=== PATIENT | male | born 1960 | race Caucasian/White ===

== ENCOUNTER 2018-11-14 16:32 | Inpatient (IN) ==
[2018-11-14] MEDS ORDERED: ASPIRIN 325 MG TABLET PO STA (17:05)
[2018-11-14] MEDS ORDERED: NITROGLYCERIN SL 0.4 MG TABLET SL PRN (17:05)
[2018-11-14] MEDS ORDERED: ENOXAPARIN 100 MG/ML SYRINGE SUBCUT STA (17:05)
[2018-11-14] MEDS ORDERED: ENOXAPARIN 120 MG/0.8 ML SYRINGE SUBCUT ONE (17:08)
[2018-11-14 17:34] LABS: Basophils # 0.1 10*3/uL (0.0-0.2); Basophils % 1.1 % (0.0-0.8); Eosinophils # 0.3 10*3/uL (0.0-0.87); Eosinophils % 4.1 % (0.00-10.9); Hematocrit 23.9 VOL% (42.0-52.0); Hemoglobin 6.5 GM/DL (14.0-18.0); Immature Granulocytes % 0.4 %; Immature Granulocytes Absolute 0.03 #; Lymphocytes % 27.7 % (21.2-54.2); Mean Corpuscular HGB Conc 27.2 GM/DL (32-36); Mean Corpuscular Hemoglobin 19 PG (27-34); Mean Corpuscular Volume 67.9 FL (87-102); Mean Platelet Volume 10.6 FL (9.6-12.0); Monocytes # 0.5 10*3/uL (0.11-0.8); Monocytes % 7.6 % (1.7-12.7); Neutrophils # 4.2 10*3/uL (1.4-7.4); Neutrophils % 59.1 % (38.7-73.9); Platelet Count 328 T/CUMM (130-400); Red Blood Count 3.52 MC/CUMM (3.8-5.5); White Blood Count 7.1 T/CUMM (4-12)
[2018-11-14 17:52] LABS: Albumin 3.7 G/DL (3.4-5.0); Bilirubin,Total 0.7 MG/DL (0.2-1.0); Calcium 8.3 MG/DL (8.5-10.1); Osmolality,Calculated 278.5 MOS/KG (273-304); Potassium 3.5 MMOL/L (3.5-5.1); Total Protein 7.7 G/DL (6.4-8.3)
[2018-11-14 18:18] LABS: Hypochromasia 2+
[2018-11-14 18:19] LABS: Elliptocytes 1+; Microcytosis 2+; Sickle Cells Few
[2018-11-14 18:20] LABS: Platelet Estimate Adequate; Poikilocytosis 2+; Target Cells Slight; Tear Drop Cells Few
[2018-11-14] MEDS ORDERED: SODIUM CHLORIDE 0.9% 1,000 ML IV PRN (18:32)
[2018-11-14] MEDS ORDERED: ACETAMINOPHEN 325 MG TABLET PO PRN (20:06)
[2018-11-14] MEDS ORDERED: DOCUSATE SODIUM 100 MG CAPSULE PO PRN (20:06)
[2018-11-14] MEDS ORDERED: guaiFENesin/DM ER 600-30 MG TABLET PO PRN (20:06)
[2018-11-14] MEDS ORDERED: ONDANSETRON 4 MG/2 ML VIAL IV PRN (20:06)
[2018-11-14] MEDS ORDERED: MORPHINE 4 MG/1 ML VIAL IV PRN (20:34)
[2018-11-14 20:59] LABS: Apearance,Urine Slightly Hazy (Clear); Bilirubin,Urine Negative (Negative); Blood, Urine Negative (Negative); Glucose,Urine (UA) Negative (Negative); Ketones,Urine 5 mg/dL (Negative); Nitrite,Urine Negative (Negative); Protein,Urine 30 MG/DL; Urine Color Yellow (Yellow); Urine Specific Gravity 1.029 (1.001-1.035); WBC,Urine <1 /HPF (0-6)
[2018-11-14] MEDS: ZALEPLON 5 MG CAPSULE PO PRN (23:00)
[2018-11-14] MEDS: ALBUTEROL/IPRATROPIUM 3 ML NEB RESP TX PRN (23:15)
[2018-11-15] MEDS: ALBUTEROL/IPRATROPIUM 3 ML NEB RESP TX PRN ×3 (05:33→21:12)
[2018-11-15 07:42] LABS: Basophils # 0.1 10*3/uL (0.0-0.2); Basophils % 1.3 % (0.0-0.8); Eosinophils # 0.3 10*3/uL (0.0-0.87); Eosinophils % 4.5 % (0.00-10.9); Hematocrit 28.3 VOL% (42.0-52.0); Immature Granulocytes % 0.3 %; Immature Granulocytes Absolute 0.02 #; Lymphocytes # 2.4 10*3/uL (1.4-4.0); Lymphocytes % 33.2 % (21.2-54.2); Mean Corpuscular HGB Conc 27.9 GM/DL (32-36); Mean Corpuscular Hemoglobin 20 PG (27-34); Mean Corpuscular Volume 70.4 FL (87-102); Mean Platelet Volume 11.1 FL (9.6-12.0); Monocytes # 0.6 10*3/uL (0.11-0.8); Neutrophils # 3.7 10*3/uL (1.4-7.4); Neutrophils % 51.7 % (38.7-73.9); Red Blood Count 4.02 MC/CUMM (3.8-5.5); Red Cell Distribution Width 19.1 % (9.3-17.3); White Blood Count 7.1 T/CUMM (4-12)
[2018-11-15 07:49] LABS: Hemoglobin 7.9 GM/DL (14.0-18.0); Platelet Count 251 T/CUMM (130-400)
[2018-11-15 08:00] LABS: Anisocytosis 1+; Elliptocytes 1+; Hypochromasia 1+; Macrocytosis 1+; Microcytosis 2+; Polychromasia 1+
[2018-11-15 08:01] LABS: Spherocytes Few
[2018-11-15 08:02] LABS: Platelet Estimate Normal; Poikilocytosis 2+; Schistocytes 1+; Target Cells 1+
[2018-11-15 08:04] LABS: % Iron Saturation 4.8 % (18-50); Ferritin 3.2 ng/ml (26-388)
[2018-11-15 08:09] LABS: Calcium 8.3 MG/DL (8.5-10.1); Osmolality,Calculated 278.3 MOS/KG (273-304); Potassium 3.9 MMOL/L (3.5-5.1); Risk Ratio 4.1; Thyroid Stimulating Hormone 2.12 uIU/ml (0.358-3.74); VLDL CHOLESTEROL 11.4 MG/DL
[2018-11-15 08:43] LABS: Folate 21.8 NG/ML (5.4-24.0); Vitamin B12 300 PG/ML (211-911)
[2018-11-15 08:55] LABS: Sedimentation Rate-Westergren 49 MM/HR (0-20)
[2018-11-15 10:14] LABS: Hemoglobin A1 (Alkaline) 97.7 % (96.5-98.5); Hemoglobin A2 (Alkaline) 2.3 % (1.5-3.5)
[2018-11-15] MEDS ORDERED: hydrALAZINE 20 MG/1 ML VIAL IV PRN (11:30)
[2018-11-15] MEDS: PANTOPRAZOLE 40 MG TABLET PO SCH (11:55)
[2018-11-15] MEDS: LOSARTAN 25 MG TABLET PO SCH (11:55)
[2018-11-15] MEDS: CHLORTHALIDONE 25 MG TABLET PO SCH (11:55)
[2018-11-15] MEDS ORDERED: ENOXAPARIN 40 MG/0.4 ML SYRINGE SUBCUT SCH (17:00)
[2018-11-15] MEDS: CARVEDILOL 3.125 MG TABLET PO SCH (17:17)
[2018-11-15] MEDS: DICLOFENAC 1% GEL 100 GM TUBE TOP SCH (21:32)
[2018-11-15] MEDS: ZALEPLON 5 MG CAPSULE PO PRN (21:34)
[2018-11-16 04:38] LABS: Basophils # 0.1 10*3/uL (0.0-0.2); Basophils % 1.1 % (0.0-0.8); Eosinophils # 0.4 10*3/uL (0.0-0.87); Eosinophils % 4.3 % (0.00-10.9); Hematocrit 29.2 VOL% (42.0-52.0); Hemoglobin 8.4 GM/DL (14.0-18.0); Immature Granulocytes % 0.4 %; Immature Granulocytes Absolute 0.03 #; Lymphocytes # 2.2 10*3/uL (1.4-4.0); Lymphocytes % 26.5 % (21.2-54.2); Mean Corpuscular HGB Conc 28.8 GM/DL (32-36); Mean Corpuscular Hemoglobin 20 PG (27-34); Mean Platelet Volume 10.2 FL (9.6-12.0); Monocytes # 0.8 10*3/uL (0.11-0.8); Monocytes % 9.6 % (1.7-12.7); Neutrophils # 4.8 10*3/uL (1.4-7.4); Neutrophils % 58.1 % (38.7-73.9); Platelet Count 294 T/CUMM (130-400); Red Blood Count 4.17 MC/CUMM (3.8-5.5); Red Cell Distribution Width 18.9 % (9.3-17.3); White Blood Count 8.3 T/CUMM (4-12)
[2018-11-16 04:45] LABS: Calcium 8.6 MG/DL (8.5-10.1); Osmolality,Calculated 271.8 MOS/KG (273-304); Potassium 3.6 MMOL/L (3.5-5.1)
[2018-11-16 05:04] LABS: Hypochromasia 1+; Microcytosis 1+; Platelet Estimate Adequate
[2018-11-16 05:05] LABS: Ovalocytes Slight; Target Cells Slight
[2018-11-16] MEDS ORDERED: PROPOFOL 200 MG/20 ML VIAL IV ONE (10:00)
[2018-11-16] MEDS ORDERED: LIDOCAINE 2% 5 ML VIAL ONE (10:00)
[2018-11-16] MEDS: CARVEDILOL 3.125 MG TABLET PO SCH ×2 (11:45→16:30)
[2018-11-16] MEDS: LOSARTAN 25 MG TABLET PO SCH (11:45)
[2018-11-16] MEDS: DICLOFENAC 1% GEL 100 GM TUBE TOP SCH ×3 (11:46→22:15)
[2018-11-16] MEDS: PANTOPRAZOLE 40 MG TABLET PO SCH (11:46)
[2018-11-16] MEDS: CHLORTHALIDONE 25 MG TABLET PO SCH (11:46)
[2018-11-16] MEDS ORDERED: BISACODYL 5 MG TABLET PO ONE (12:00)
[2018-11-16] MEDS ORDERED: POLYETHYLENE GLYCOL POWDER 255 GM BOTTLE PO ONE (18:00)
[2018-11-17 05:36] LABS: Calcium 8.4 MG/DL (8.5-10.1); Osmolality,Calculated 273.7 MOS/KG (273-304); Potassium 3.4 MMOL/L (3.5-5.1)
[2018-11-17 06:09] LABS: Basophils # 0.1 10*3/uL (0.0-0.2); Eosinophils # 0.3 10*3/uL (0.0-0.87); Eosinophils % 2.8 % (0.00-10.9); Hematocrit 29.4 VOL% (42.0-52.0); Immature Granulocytes % 0.3 %; Immature Granulocytes Absolute 0.03 #; Lymphocytes # 2.2 10*3/uL (1.4-4.0); Lymphocytes % 23.7 % (21.2-54.2); Mean Corpuscular HGB Conc 28.6 GM/DL (32-36); Mean Corpuscular Hemoglobin 20 PG (27-34); Mean Corpuscular Volume 69.8 FL (87-102); Mean Platelet Volume 10.4 FL (9.6-12.0); Monocytes # 0.9 10*3/uL (0.11-0.8); Monocytes % 9.9 % (1.7-12.7); Neutrophils # 5.7 10*3/uL (1.4-7.4); Neutrophils % 62.3 % (38.7-73.9); Platelet Count 320 T/CUMM (130-400); Red Blood Count 4.21 MC/CUMM (3.8-5.5); Red Cell Distribution Width 19.5 % (9.3-17.3); White Blood Count 9.1 T/CUMM (4-12)
[2018-11-17 06:11] LABS: Hemoglobin 8.4 GM/DL (14.0-18.0)
[2018-11-17 06:16] LABS: Hypochromasia 2+; Platelet Estimate Normal
[2018-11-17] MEDS ORDERED: LIDOCAINE 100 MG/5 ML SYRINGE ONE (10:00)
[2018-11-17] MEDS ORDERED: PROPOFOL 200 MG/20 ML VIAL IV ONE (10:00)
[2018-11-17] MEDS: PANTOPRAZOLE 40 MG TABLET PO SCH (15:07)
[2018-11-17] MEDS: LOSARTAN 25 MG TABLET PO SCH (15:07)
[2018-11-17] MEDS: CARVEDILOL 3.125 MG TABLET PO SCH ×2 (15:07→16:20)
[2018-11-17] MEDS: DICLOFENAC 1% GEL 100 GM TUBE TOP SCH ×2 (15:08→21:26)
[2018-11-17] MEDS: CHLORTHALIDONE 25 MG TABLET PO SCH (15:08)
[2018-11-17] MEDS: LISINOPRIL 10 MG TABLET PO SCH (21:25)
[2018-11-17] MEDS: METOPROLOL TARTRATE 50 MG TABLET PO SCH (21:25)
[2018-11-18 04:54] LABS: Hematocrit 29.1 VOL% (42.0-52.0); Hemoglobin 8.4 GM/DL (14.0-18.0)
[2018-11-18 07:48] VITALS: BP 112/54
[2018-11-18] MEDS: PANTOPRAZOLE 40 MG TABLET PO SCH (08:44)
[2018-11-18] MEDS: CHLORTHALIDONE 25 MG TABLET PO SCH (08:44)
[2018-11-18] MEDS: METOPROLOL TARTRATE 50 MG TABLET PO SCH (08:44)
[2018-11-18] MEDS: LISINOPRIL 10 MG TABLET PO SCH (08:44)
[2018-11-18] MEDS: DICLOFENAC 1% GEL 100 GM TUBE TOP SCH (08:44)
== END 2018-11-18 09:45 | disposition home or self-care (01) | DRG 378 ==
LOC: N.EDINP 16:32 → N.ED 16:32 → N.TELEN 21:04 → SUATTDRO 11-15 14:54
PROVIDERS: ADMIT Internal Medicine; ATTEND Internal Medicine

== ENCOUNTER 2019-03-19 14:37 | Inpatient (IN) ==
[2019-03-19 15:38] LABS: PT Patient Result 10.9 SECS
[2019-03-19 15:50] LABS: Basophils # 0.1 10*3/uL (0.0-0.2); Basophils % 0.6 % (0.0-0.8); Eosinophils # 0.3 10*3/uL (0.0-0.87); Eosinophils % 3.3 % (0.00-10.9); Hematocrit 23.4 VOL% (42.0-52.0); Immature Granulocytes % 0.3 %; Immature Granulocytes Absolute 0.02 #; Lymphocytes # 2.1 10*3/uL (1.4-4.0); Lymphocytes % 26.7 % (21.2-54.2); Mean Corpuscular HGB Conc 26.5 GM/DL (32-36); Mean Corpuscular Volume 69.6 FL (87-102); Mean Platelet Volume 10.3 FL (9.6-12.0); Neutrophils % 66.1 % (38.7-73.9); Platelet Count 338 T/CUMM (130-400); Red Blood Count 3.36 MC/CUMM (3.8-5.5); Red Cell Distribution Width 17.2 % (9.3-17.3); White Blood Count 7.9 T/CUMM (4-12)
[2019-03-19 15:52] LABS: Hemoglobin 6.2 GM/DL (14.0-18.0)
[2019-03-19 15:54] LABS: Eosinophils 3 % (0-10); Hypochromasia 2+; Lymphocytes 26 % (20-55); Segmented Neutrophils 66 % (50-85); Total Cells Counted 100
[2019-03-19 15:55] LABS: Anisocytosis 1+; Microcytosis 1+; Ovalocytes Slight; Platelet Estimate Normal; Poikilocytosis 1+; Polychromasia Few
[2019-03-19 15:56] LABS: Stomatocytes 1+
[2019-03-19 15:58] LABS: Alanine Aminotransferase 17 U/L (16-61); Albumin 3.6 G/DL (3.4-5.0); Alkaline Phosphatase 35 U/L (45-117); Aspartate Amino Transferase 14 U/L (0-37); Bilirubin,Total < 0.39 MG/DL (0.2-1.0); Blood Urea Nitrogen 13 MG/DL (7-18); Calcium 8.3 MG/DL (8.5-10.1); Glucose 126 MG/DL (74-106); Osmolality,Calculated 282.3 MOS/KG (273-304); Total Protein 7.2 G/DL (6.4-8.3); Troponin I < 0.015 NG/ML (0.00-0.045)
[2019-03-19 16:35] LABS: Apearance,Urine CLEAR (Clear); Bilirubin,Urine Negative (Negative); Blood, Urine Negative (Negative); Glucose,Urine (UA) Negative (Negative); Hyaline Casts,Urine 1 /LPF (0-3); Ketones,Urine Negative (Negative); Mucus,Urine Occasional /LPF (Occasional); Nitrite,Urine Negative (Negative); Protein,Urine Negative; Squamous Epithelial Cell,Urine Occasional /HPF (0-10); Urine Color Straw (Yellow); Urine Specific Gravity 1.009 (1.001-1.035); Urine Urobilinogen < 2.0 EU/DL (0.2-1.0); WBC,Urine 1 /HPF (0-6)
[2019-03-19] MEDS ORDERED: ONDANSETRON 4 MG/2 ML VIAL IV PRN (17:05)
[2019-03-19] MEDS ORDERED: SODIUM CHLORIDE 0.9% 1,000 ML IV PRN (17:05)
[2019-03-19] MEDS: ACETAMINOPHEN 325 MG TABLET PO PRN ×2 (17:33→22:36)
[2019-03-19 17:52] LABS: % Iron Saturation 3.2 % (18-50); Ferritin 2.7 ng/ml (26-388)
[2019-03-19 17:56] LABS: Folate 16.8 NG/ML (5.4-24.0)
[2019-03-19] MEDS ORDERED: PNEUMOCOCCAL VACCINE (13 VALENT) 0.5 ML SYRINGE IM ONE (20:09)
[2019-03-19 20:49] LABS: Hemoglobin 6.2 GM/DL (14.0-18.0)
[2019-03-19] MEDS: CARVEDILOL 12.5 MG TABLET PO SCH (21:35)
[2019-03-19] MEDS: FUROSEMIDE 40 MG/4 ML VIAL IV SCH (21:37)
[2019-03-19] MEDS ORDERED: NICOTINE 21 MG/24 HR PATCH TRANSDERM PRN (21:51)
[2019-03-20 06:46] LABS: Basophils # 0.1 10*3/uL (0.0-0.2); Basophils % 0.6 % (0.0-0.8); Eosinophils # 0.3 10*3/uL (0.0-0.87); Eosinophils % 3.6 % (0.00-10.9); Hematocrit 27.2 VOL% (42.0-52.0); Immature Granulocytes % 0.4 %; Immature Granulocytes Absolute 0.03 #; Lymphocytes # 2.1 10*3/uL (1.4-4.0); Lymphocytes % 26.3 % (21.2-54.2); Mean Corpuscular HGB Conc 27.6 GM/DL (32-36); Mean Corpuscular Volume 73.1 FL (87-102); Mean Platelet Volume 9.9 FL (9.6-12.0); Monocytes % 10.3 % (1.7-12.7); Neutrophils % 58.8 % (38.7-73.9); Platelet Count 294 T/CUMM (130-400); Red Blood Count 3.72 MC/CUMM (3.8-5.5); Red Cell Distribution Width 18.3 % (9.3-17.3); White Blood Count 7.9 T/CUMM (4-12)
[2019-03-20 06:49] LABS: Hemoglobin 7.5 GM/DL (14.0-18.0)
[2019-03-20 06:49] LABS: Albumin 3.3 G/DL (3.4-5.0); Bilirubin,Total 0.9 MG/DL (0.2-1.0); Calcium 8.3 MG/DL (8.5-10.1); Osmolality,Calculated 282.1 MOS/KG (273-304); Thyroid Stimulating Hormone 1.68 uIU/ml (0.358-3.74); Total Protein 6.9 G/DL (6.4-8.3)
[2019-03-20 06:57] LABS: Platelet Estimate Normal; Polychromasia Few
[2019-03-20 09:34] LABS: Hematocrit 27.7 VOL% (42.0-52.0)
[2019-03-20 09:35] LABS: Hemoglobin 7.8 GM/DL (14.0-18.0)
[2019-03-20] MEDS: PANTOPRAZOLE 40 MG TABLET PO SCH (09:45)
[2019-03-20] MEDS: CARVEDILOL 12.5 MG TABLET PO SCH ×2 (09:45→17:03)
[2019-03-20] MEDS: FUROSEMIDE 40 MG/4 ML VIAL IV SCH (09:45)
[2019-03-20] MEDS: LISINOPRIL 10 MG TABLET PO SCH (09:45)
[2019-03-20] MEDS: IRON SUCROSE 200 MG in SODIUM CHLORIDE 0.9% 100 ML IV SCH (09:59)
[2019-03-20] MEDS ORDERED: KETOROLAC 30 MG/1 ML VIAL IV ONE (10:30)
[2019-03-21 05:52] LABS: Albumin 3.5 G/DL (3.4-5.0); Bilirubin,Total 0.4 MG/DL (0.2-1.0); Calcium 8.6 MG/DL (8.5-10.1); Osmolality,Calculated 280.3 MOS/KG (273-304); Total Protein 7.1 G/DL (6.4-8.3)
[2019-03-21 06:15] LABS: Basophils # 0.1 10*3/uL (0.0-0.2); Eosinophils # 0.3 10*3/uL (0.0-0.87); Eosinophils % 3.8 % (0.00-10.9); Hematocrit 26.8 VOL% (42.0-52.0); Immature Granulocytes % 0.5 %; Immature Granulocytes Absolute 0.04 #; Lymphocytes # 2.5 10*3/uL (1.4-4.0); Lymphocytes % 28.1 % (21.2-54.2); Mean Corpuscular HGB Conc 28.4 GM/DL (32-36); Mean Corpuscular Volume 71.3 FL (87-102); Mean Platelet Volume 10.7 FL (9.6-12.0); Monocytes % 9.3 % (1.7-12.7); Neutrophils % 57.3 % (38.7-73.9); Platelet Count 335 T/CUMM (130-400); Red Blood Count 3.76 MC/CUMM (3.8-5.5); Red Cell Distribution Width 18.2 % (9.3-17.3); White Blood Count 8.8 T/CUMM (4-12)
[2019-03-21 06:17] LABS: Hemoglobin 7.6 GM/DL (14.0-18.0)
[2019-03-21 06:58] LABS: Hypochromasia 1+; Microcytosis 1+; Ovalocytes Few; Platelet Estimate Normal
[2019-03-21] MEDS ORDERED: PROPOFOL 200 MG/20 ML VIAL IV ONE (07:20)
[2019-03-21] MEDS ORDERED: LIDOCAINE 2% 5 ML VIAL ONE (07:20)
[2019-03-21] MEDS ORDERED: LACTATED RINGERS 1,000 ML IV SCH (08:00)
[2019-03-21] MEDS: CARVEDILOL 12.5 MG TABLET PO SCH (11:00)
[2019-03-21] MEDS: LISINOPRIL 10 MG TABLET PO SCH (11:00)
[2019-03-21] MEDS ORDERED: PANTOPRAZOLE 40 MG TABLET PO SCH (11:00)
[2019-03-21] MEDS: FUROSEMIDE 40 MG/4 ML VIAL IV SCH (11:00)
[2019-03-21] MEDS: IRON SUCROSE 200 MG in SODIUM CHLORIDE 0.9% 100 ML IV SCH (11:01)
[2019-03-21] MEDS: PANTOPRAZOLE 40 MG TABLET PO SCH (11:08)
[2019-03-21 12:32] VITALS: BP 163/93
== END 2019-03-21 14:57 | disposition home or self-care (01) | DRG 812 ==
LOC: N.ED 14:37 → N.EDINP 17:05 → SUATTDRO 17:05 → N.EDINP 19:28 → N.2E 19:50
PROVIDERS: ADMIT Internal Medicine Nephrology; ATTEND Hospitalist